=== PATIENT | female | born 2000 | race Caucasian/White ===

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

== ENCOUNTER 2023-01-04 15:55 | Emergency (ER) | payer MEDICAID, OTHER ==
[~2023-01-04] VITALS: Ht 162 cm; Wt 64.0 kg
[2023-01-04 16:20] VITALS: BP 132/80
== END 2023-01-04 17:25 | disposition left against medical advice (07) ==
LOC: EDUNIT# 15:55 → ER FS 15:56
DX: K08.89 Other specified disorders of teeth and supporting structures (principal); Z28.310 Unvaccinated for COVID-19
CPT/HCPCS: 99282